=== PATIENT | female | born 1980 | race Caucasian/White ===

== ENCOUNTER 2021-08-10 09:54 | Emergency (ER) | payer SELFPAY ==
[2021-08-10] MEDS ORDERED: Acetaminophen 500 MG TAB ONE (10:18)
[2021-08-10] MEDS ORDERED: Albuterol 200 PUFF (6.7GM INHALER) ONE (10:44)
[2021-08-10 16:19] LABS: SARS-CoV-2 PCR by NAA Not Detected (NotDetected)
== END 2021-08-10 12:09 | disposition home or self-care (01) ==
LOC: ERS 09:54
DX: B34.9 Viral infection, unspecified (principal); Z20.822 Contact with and (suspected) exposure to COVID-19; I10 Essential (primary) hypertension; Z85.43 Personal history of malignant neoplasm of ovary; E66.9 Obesity, unspecified; Z87.891 Personal history of nicotine dependence; Z79.899 Other long term (current) drug therapy
CPT/HCPCS: 71045; 87804; U0003; U0005